=== PATIENT | male | born 1995 | race Caucasian/White ===

== ENCOUNTER 2019-12-08 16:20 | Inpatient (IN) | payer SELFPAY ==
[2019-12-08] MEDS ORDERED: fentaNYL 100 MCG/2 ML SDV IVPUSH ONE (17:06)
[2019-12-08] MEDS ORDERED: Ondansetron 4 MG/2 ML SDV IV ONE (17:06)
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
[2019-12-08] MEDS: Sodium Chloride 0.9% 1,000 ML IV ONE ×2 (17:14→19:04)
[2019-12-08 17:15] LABS: ANION GAP 15.6 mEq/L (7-13); CHLORIDE,CL 104 mmol/L (98-107); SODIUM,NA 143 mmol/L (136-145)
[2019-12-08] MEDS ORDERED: Iopamidol 612 MG/ML 100 ML Bottle IVPUSH ONE (17:32)
--- NOTE | 2019-12-08 18:14 | CT ---
PROCEDURE INFORMATION: Exam: CT Abdomen And Pelvis With Contrast Exam date and time: 12/08/2019 5:45 PM Age: 24 years old Clinical indication: Vomiting and other: Wbc 15,500; Additional info: Rlq pain, n/v, back pain TECHNIQUE: Imaging protocol: Computed tomography of the abdomen and pelvis with intravenous contrast. Radiation optimization: All CT scans at this facility use at least one of these dose optimization techniques: automated exposure control; mA and/or kV adjustment per patient size (includes targeted exams where dose is matched to clinical indication); or iterative reconstruction. Contrast material: [id number]; Contrast volume: 100 ml; Contrast route: INTRAVENOUS (IV); COMPARISON: No relevant prior studies available. FINDINGS: Lungs: The visualized portions of the lung bases are normal. There is no cardiomegaly, Liver: Normal. No mass. Gallbladder and bile ducts: Cholecystectomy. No ductal dilation. Pancreas: Normal. No ductal dilation. Spleen: Normal. No splenomegaly. Adrenals: Normal. No mass. Kidneys and ureters: Bilateral small non-obstructing renal nephroliths that range in size from 2-4mm. Right kidney has a length of 10.2 cm. Left kidney measures 9.9 cm with mild cortical thinning. No hydronephrosis. Stomach and bowel: Unremarkable. No obstruction. No mucosal thickening. Appendix: There is a normal air-filled appendix. Intraperitoneal space: Unremarkable. No free air. No significant fluid collection. Vasculature: Unremarkable. No abdominal aortic aneurysm. Lymph nodes: Unremarkable. No enlarged lymph nodes. Bladder: Unremarkable as visualized. Reproductive: Unremarkable as visualized. Bones/joints: Unremarkable. No acute fracture. Soft tissues: Unremarkable. IMPRESSION: 1. No acute intra-abdominal or pelvic abnormality. 2. Bilateral renal nephroliths. Right kidney asymmetrically larger than the left. Without IV contrast difficult to exclude pyelonephritis. Correlate clinically.
[2019-12-08] MEDS ORDERED: Ketorolac 30 MG/ML SDV IVPUSH ONE (18:17)
[2019-12-08] MEDS ORDERED: Levofloxacin/Dextrose 5%-Water 500 MG in Premix Bag 1 BAG IV ONE (18:47)
[2019-12-08] MEDS ORDERED: HYDROmorphone 1 MG/ML Syringe IVPUSH ONE (18:51)
[2019-12-08] MEDS ORDERED: Metoclopramide 10 MG/2 ML SDV IVPUSH ONE (19:10)
[2019-12-08] MEDS ORDERED: Docusate Sodium 100 MG Cap PO PRN (19:50)
[2019-12-08] MEDS: Pantoprazole 40 MG Vial IVPUSH SCH (20:42)
[2019-12-08] MEDS: Morphine 2 MG/ML SYRINGE IVPUSH PRN ×2 (20:43→23:10)
[2019-12-08] MEDS: Gabapentin 300 MG Cap PO SCH (20:44)
[2019-12-08] MEDS: Ondansetron 4 MG Tab.DIS PO PRN (20:44)
[2019-12-08] MEDS: Sodium Chloride 0.9% 1,000 ML IV SCH (20:51)
[2019-12-08] MEDS ORDERED: methylPREDNISolone 4 MG Tab 21 Tab/Dosepak PO ONE ×2 (21:30→23:00)
[2019-12-08] MEDS: Nicotine 21 MG/24 Hr Patch TRDERM SCH (21:42)
[2019-12-08] MEDS: oxyCODONE 5 MG Tab PO PRN (21:51)
--- NOTE | 2019-12-09 00:46 | HP ---
CHIEF COMPLAINT: Low back pain and abdominal pain. HISTORY OF PRESENT ILLNESS: The patient is a 24-year-old gentleman who was admitted through the emergency room because the patient was complaining of back pain and right lower quadrant pain. The patient mentioned that he had radiofrequency ablation for his chronic low back pain last October 26, 2019, and had some Medrol Dosepak after the ablation therapy which seems to help, but today he started having again some increased back pain and has been using Tylenol and ibuprofen combination and he ran out of his gabapentin, but he got it refilled today and restarted today. He also mentioned that he had some nausea and vomiting and had some blood in his vomitus. Because of the persistence of low back pain and abdominal pain, he came into the emergency room. In the emergency room, the patient was given fentanyl for pain management and had some lab workup done, which showed some leukocytosis, and a CAT scan of the abdomen and pelvis showed no acute intra-abdominal or pelvic abnormality. There are bilateral renal nephroliths and right kidney asymmetrically larger than the left. Without IV contrast, it is difficult to exclude pyelonephritis. Because of this, he was then admitted for further evaluation and management. PAST MEDICAL HISTORY: Remarkable for chronic low back pain, status post radiofrequency ablation. He has also history of renal calculus and history of cholecystectomy and history of ureteral stent. SOCIAL HISTORY: Used to live in [place] and now here in [place]. He chews tobacco. Very occasional alcohol drinker. No illicit drug use. FAMILY HISTORY: Noncontributory. REVIEW OF SYSTEMS: As in HPI. The patient denies any head headache, chest pain, shortness of breath, dysuria, or diarrhea nor any other complaints. HOME MEDICATIONS: Tylenol PM, gabapentin, and Medrol Dosepak. ALLERGIES: Cephalosporin and penicillin. PHYSICAL EXAMINATION: General: Very pleasant gentleman. He is alert and oriented x3 in mild-to- moderate distress from the abdominal and back pain. Vital Signs: Blood pressure is 145/79, pulse of 89, respirations of 18, temperature of 98.1, saturation is 99%. HEENT: Normocephalic. There are pink palpebral conjunctivae. Sclerae anicteric. No JVD. No lymphadenopathy. Heart: Regular rate and rhythm. Normal S1 and S2. No gallops. No rubs. Lungs: Equal bilaterally. No crackles. No wheezing. Abdomen: Hmko-ja-ehwerynrzu obese. Soft. There is mild generalized direct tenderness with mild rebound. Bowel sounds positive. There is also positive CVA tenderness bilaterally on percussion. There is no LS spine tenderness with palpation. Extremities: Negative for any pedal edema. No calf tenderness. LABORATORY WORKUP: CBC: WBC is 15, hemoglobin is 14.3, hematocrit is 41.7, platelets are 268. Urinalysis has 100 mg of protein, 0-5 rbc's, 0-5 wbc's, and few calcium oxalate crystals. Urine drug screen is negative. Comp panel: Albumin is 5.1, anion gap is 15.6. The rest of the panel unremarkable. Blood cultures sent and lactic acid also ordered. ADMITTING DIAGNOSES: 1. Low back pain and abdominal pain, suspected pyelonephritis. 2. History of chronic low back pain. 3. Nephrolithiasis. TREATMENT PLAN: The patient is going to be admitted to Acute Care General Medicine Floor. He will be started on IV antibiotics and he will be started on IV pain medication, and the rest of the management as necessary, and the patient is a full code. [facility] /[id number]
[2019-12-09] MEDS: Sodium Chloride 0.9% 1,000 ML IV SCH ×2 (01:56→17:58)
[2019-12-09 06:53] LABS: ANION GAP 12.1 mEq/L (7-13); CHLORIDE,CL 108 mmol/L (98-107); SODIUM,NA 143 mmol/L (136-145)
[2019-12-09] MEDS: methylPREDNISolone 4 MG Tab 21 Tab/Dosepak PO SCH (07:57)
[2019-12-09] MEDS: oxyCODONE 5 MG Tab PO PRN ×4 (07:58→20:27)
[2019-12-09] MEDS: Ondansetron 4 MG Tab.DIS PO PRN ×2 (07:58→13:04)
[2019-12-09] MEDS: Pantoprazole 40 MG Vial IVPUSH SCH ×2 (08:00→20:17)
[2019-12-09] MEDS ORDERED: methylPREDNISolone 4 MG Tab 21 Tab/Dosepak PO SCH ×3 (09:00→18:00)
[2019-12-09] MEDS: Gabapentin 300 MG Cap PO SCH ×3 (10:03→20:27)
[2019-12-09] MEDS: Enoxaparin 40 MG/0.4 ML Syringe SUBCUT SCH (10:04)
--- NOTE | 2019-12-09 10:35 | PN ---
DATE: 12/09/2019 SUBJECTIVE: The patient this morning is feeling a little bit better and he tolerated his clear liquid diet. He still has some mild abdominal discomfort, but much better as compared to yesterday. So far, has not had any vomiting. LAB WORKUP THIS MORNING: CBC: WBC is 9.2, hemoglobin is 12.4, hematocrit is 37.8, platelets 211. Basic metabolic panel: Chloride is 108, calcium 8.2. The rest of the panel unremarkable. OBJECTIVE: Vital Signs: Blood pressure is 147/89, pulse of 51, respirations 16, temperature of 97.5, saturation 100%. Heart: Regular rate and rhythm. Normal S1 and S2. No gallops. No rubs. Lungs: Equal bilaterally. No crackles. No wheezing. Abdomen: Soft. There is very mild direct tenderness, but no rebound. Bowel sounds positive. Extremities: Negative for any pedal edema. No calf tenderness. PLAN: We will continue with his present management. We will advance his diet to as tolerated. I am still awaiting for the official report of the blood culture as well as the urine culture. [facility] /[id number]
[2019-12-09] MEDS: Morphine 2 MG/ML SYRINGE IVPUSH PRN ×2 (13:04→22:53)
[2019-12-09] MEDS: Acetaminophen 325 MG Tab PO PRN ×2 (15:54→20:29)
[2019-12-09] MEDS ORDERED: Levofloxacin/Dextrose 5%-Water 500 MG in Premix Bag 1 BAG IV SCH (20:00)
[2019-12-09] MEDS: Nicotine 21 MG/24 Hr Patch TRDERM SCH (20:39)
[2019-12-10] MEDS: Acetaminophen 325 MG Tab PO PRN ×2 (01:02→08:40)
[2019-12-10] MEDS: oxyCODONE 5 MG Tab PO PRN ×2 (01:03→08:40)
[2019-12-10] MEDS: Morphine 2 MG/ML SYRINGE IVPUSH PRN (01:04)
[2019-12-10] MEDS: Sodium Chloride 0.9% 1,000 ML IV SCH (04:21)
[2019-12-10] MEDS: methylPREDNISolone 4 MG Tab 21 Tab/Dosepak PO SCH (08:38)
[2019-12-10] MEDS: Gabapentin 300 MG Cap PO SCH (08:39)
[2019-12-10] MEDS: Enoxaparin 40 MG/0.4 ML Syringe SUBCUT SCH (08:39)
[2019-12-10] MEDS: Pantoprazole 40 MG Vial IVPUSH SCH (08:39)
--- NOTE | 2019-12-10 09:18 | DISCH ---
FINAL DIAGNOSES: 1. Low back pain and abdominal pain with suspected pyelonephritis. 2. Nephrolithiasis. 3. Chronic low back pain. 4. Gastritis. BRIEF HISTORY OF PRESENT ILLNESS: Please see H and P. PERTINENT LABS, X-RAY, AND OTHER TESTS ON ADMISSION: Please see H and P. HOSPITAL COURSE: The patient was admitted to Acute Care, General Medicine Floor. He was empirically started on IV antibiotics (Levaquin) and was also given Protonix for his abdominal pain for possible gastritis and he was given morphine for pain management as well as oxycodone. Blood cultures came back negative and the patient slowly improved and he was subsequently discharged. Hospital course was basically uncomplicated and he will be discharged on oral Levaquin for the next 7 days. He will also be given oxycodone for pain management and also be continued on Protonix for the next 10 to 14 days. He is going to follow up with the primary care provider for a recheck. [facility] /[id number]
--- NOTE | 2019-12-10 09:18 | PN ---
DATE: 12/10/2019 SUBJECTIVE: The patient continues to do well. He still has some mild right- sided abdominal/flank pain, but overall he is feeling much better and he is ready to go home. He denies any fever, chills, chest pain, shortness of breath, dysuria, diarrhea, nor any other complaints. Blood culture so far has no growth. OBJECTIVE: Vital Signs: Blood pressure is 145/97, pulse 62, respirations 20, temperature of 98.2, saturation is 100% on room air. Heart: Regular rate and rhythm. Normal S1 and S2. No gallops. No rubs. Lungs: Equal bilaterally. No crackles. No wheezing. Abdomen: Soft. There is mild direct tenderness in the right lumbar area, but no rebound. Bowel sounds positive, and there is mild CVA tenderness in the right costovertebral angle. Extremities: Negative for any pedal edema. No calf tenderness. MEDICATIONS: Reviewed. PLAN: We will discharge the patient home today. We will continue with oral antibiotics for the next 7 days, and we will also give him some oxycodone for pain management, and we will resume his home medication, and he is going to follow up with primary care provider in 7 to 10 days for a recheck of urinalysis. [facility] /[id number]
== END 2019-12-10 11:34 | disposition home or self-care (01) | DRG 690 ==
LOC: DL.ED 16:20 → UNDOADMIN 19:47 → DL.MS 19:47
PROVIDERS: ADMIT Internal Medicine; ATTEND Internal Medicine
DX: N12 Tubulo-interstitial nephritis, not specified as acute or chronic (principal); N20.0 Calculus of kidney; K29.70 Gastritis, unspecified, without bleeding; F17.200 Nicotine dependence, unspecified, uncomplicated; M54.5 Low back pain; G89.29 Other chronic pain; Z88.0 Allergy status to penicillin; Z90.49 Acquired absence of other specified parts of digestive tract; Z79.899 Other long term (current) drug therapy; Z28.82 Immunization not carried out because of caregiver refusal
CPT/HCPCS: 36415; 74177; 80048; 80053; 80305-QW; 81001; 83605; 85025; 87040; 87086; 96361; 96374; 96375; 99285-25; A9270-GY; C9113; J1170; J1650; J1885; J1956; J2270; J2405; J2765; J3010; J7030; Q9967

== ENCOUNTER 2019-12-27 05:38 | Emergency (ER) | payer SELFPAY ==
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
[2019-12-27 06:49] LABS: CHLORIDE,CL 105 mmol/L (98-107); SODIUM,NA 141 mmol/L (136-145)
== END 2019-12-27 08:39 | disposition home or self-care (01) ==
LOC: DL.ED 05:38
DX: M54.16 Radiculopathy, lumbar region (principal); F17.210 Nicotine dependence, cigarettes, uncomplicated; Z88.1 Allergy status to other antibiotic agents; Z88.0 Allergy status to penicillin; Z79.899 Other long term (current) drug therapy
CPT/HCPCS: 36415; 80053; 80305-QW; 81003; 84484; 85025; 93005; 99283-25

== ENCOUNTER 2020-02-19 21:23 | Emergency (ER) | payer SELFPAY ==
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
[2020-02-19] MEDS ORDERED: Acetaminophen 325 MG Tab PO ONE ×2 (22:01→22:08)
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
== END 2020-02-19 22:32 ==
LOC: DL.ED 21:23
DX: S20.211A Contusion of right front wall of thorax, initial encounter (principal); F17.210 Nicotine dependence, cigarettes, uncomplicated; Z88.1 Allergy status to other antibiotic agents; Z88.0 Allergy status to penicillin; Y04.0XXA Assault by unarmed brawl or fight, initial encounter
CPT/HCPCS: 71101-RT; 99284-25; U0002

== ENCOUNTER 2020-02-20 19:45 | Emergency (ER) | payer SELFPAY ==
[2020-02-20 21:17] LABS: ANION GAP 16.6 mEq/L (7-13); CHLORIDE,CL 103 mmol/L (98-107); SODIUM,NA 139 mmol/L (136-145)
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
== END 2020-02-20 21:28 ==
LOC: DL.ED 19:45
DX: G89.29 Other chronic pain (principal); M54.5 Low back pain; S20.211A Contusion of right front wall of thorax, initial encounter; F50.89 Other specified eating disorder; F17.210 Nicotine dependence, cigarettes, uncomplicated; Z88.1 Allergy status to other antibiotic agents; Z88.0 Allergy status to penicillin; Y04.0XXA Assault by unarmed brawl or fight, initial encounter
CPT/HCPCS: 36415; 80053; 80305-QW; 81001; 82150; 83690; 85025; 99284

== ENCOUNTER 2021-07-31 09:12 | Emergency (ER) | payer OTHER ==
[2021-07-31] MEDS ORDERED: Sodium Chloride 0.9% 1,000 ML IV ONE (09:46)
[2021-07-31] MEDS ORDERED: Ondansetron 4 MG/2 ML SDV IV ONE (09:46)
[2021-07-31] MEDS ORDERED: Sodium Chloride 0.9% 10 ML Syringe FLUSH PRN (09:46)
[2021-07-31] MEDS ORDERED: Pantoprazole 40 MG Vial IVPUSH ONE (09:47)
[2021-07-31] MEDS ORDERED: HYDROmorphone 1 MG/ML Syringe IVPUSH ONE ×2 (09:47→10:52)
[2021-07-31] MEDS ORDERED: Promethazine 25 MG/ML SDV IM ONE (10:21)
[2021-07-31 10:35] LABS: ANION GAP 14.9 mEq/L (7-13); CHLORIDE,CL 102 mmol/L (98-107); SODIUM,NA 138 mmol/L (136-145)
[2021-07-31 10:45] LABS: BENZODIAZEPINE,URINE NEGATIVE (NEGATIVE); METHAMPHETAMINES,URINE NEGATIVE (NEGATIVE); OPIATES,URINE NEGATIVE (NEGATIVE)
[2021-07-31 10:46] LABS: AMPHETAMINES,URINE NEGATIVE (NEGATIVE); BARBITURATES,URINE NEGATIVE (NEGATIVE); MDMA (ECSTASY), URINE NEGATIVE (NEGATIVE); METHADONE,URINE POSITIVE (NEGATIVE); OXYCODONE,URINE NEGATIVE (NEGATIVE); PHENCYCLIDINE,URINE NEGATIVE (NEGATIVE); TCA,URINE POSITIVE (NEGATIVE)
[2021-07-31] MEDS ORDERED: Iopamidol 612 MG/ML 100 ML Bottle IVPUSH ONE (10:49)
[2021-07-31 11:26] LABS: CORONAVIRUS COVID-19 NAA NEGATIVE (NEGATIVE); RESPIRATORY SYNCYTIAL VIR NAA NEGATIVE (NEGATIVE)
== END 2021-07-31 13:16 | disposition home or self-care (01) ==
LOC: DL.ED 09:12
DX: A08.4 Viral intestinal infection, unspecified (principal); Z90.49 Acquired absence of other specified parts of digestive tract; Z79.899 Other long term (current) drug therapy; Z88.0 Allergy status to penicillin; Z88.1 Allergy status to other antibiotic agents; Z20.822 Contact with and (suspected) exposure to COVID-19
CPT/HCPCS: 0241U; 36415; 71046; 74177; 80053; 80305-QW; 81003; 82150; 82272; 83605; 83690; 83735; 84484; 85025; 85379; 86140; 87040; 87046; 96372; 96374; 96375; 96376; 99284; 99284-25; C9113; J1170; J2405; J2550; J3490; J7030; Q9967

== ENCOUNTER 2021-11-09 01:17 | Emergency (ER) | payer OTHER ==
[2021-11-09] MEDS ORDERED: Sodium Chloride 0.9% 10 ML Syringe FLUSH PRN (01:45)
[2021-11-09] MEDS ORDERED: Ketorolac 30 MG/ML SDV IVPUSH ONE (01:45)
[2021-11-09] MEDS ORDERED: fentaNYL 100 MCG/2 ML SDV IVPUSH ONE (01:45)
[2021-11-09 02:37] LABS: AMPHETAMINES,URINE NEGATIVE (NEGATIVE); BARBITURATES,URINE NEGATIVE (NEGATIVE); BENZODIAZEPINE,URINE NEGATIVE (NEGATIVE); MDMA (ECSTASY), URINE NEGATIVE (NEGATIVE); METHADONE,URINE POSITIVE (NEGATIVE); METHAMPHETAMINES,URINE NEGATIVE (NEGATIVE); OPIATES,URINE NEGATIVE (NEGATIVE); OXYCODONE,URINE NEGATIVE (NEGATIVE); PHENCYCLIDINE,URINE NEGATIVE (NEGATIVE); TCA,URINE POSITIVE (NEGATIVE)
[2021-11-09 02:41] LABS: ANION GAP 13.9 mEq/L (7-13)
[2021-11-09] MEDS ORDERED: methylPREDNISolone Sodium Succinate 125 MG/2 ML SDV IVPUSH ONE (03:53)
== END 2021-11-09 04:35 | disposition home or self-care (01) ==
LOC: DL.ED 01:17
DX: M54.50 Low back pain, unspecified (principal); Z86.16 Personal history of COVID-19; Z88.0 Allergy status to penicillin; Z88.8 Allergy status to other drugs, medicaments and biological substances
CPT/HCPCS: 36415; 72131; 80053; 80305-QW; 81003; 85025; 85651; 86140; 96374; 96375; 99284; 99285-25; J1885; J2930; J3010; J3490

== ENCOUNTER 2022-08-15 21:16 | Emergency (ER) | payer OTHER ==
[2022-08-15] MEDS: Morphine 4 MG/ML Syringe IM ONE (23:13)
[2022-08-15] MEDS: Ondansetron 4 MG Tab.DIS PO ONE (23:19)
[2022-08-16] MEDS: HYDROmorphone 1 MG/ML Syringe IM ONE (00:10)
[2022-08-16] MEDS ORDERED: Take Home: Acetaminophen/oxyCODONE 325-5 MG, 5 Tab Pack PO ONE (00:50)
[2022-08-16] MEDS: Take Home: Acetaminophen/oxyCODONE 325-5 MG, 5 Tab Pack PO ONE (01:10)
== END 2022-08-16 01:22 | disposition home or self-care (01) ==
LOC: DL.ED 21:16
DX: S42.001A Fracture of unspecified part of right clavicle, initial encounter for closed fracture (principal); Z88.0 Allergy status to penicillin; Z88.8 Allergy status to other drugs, medicaments and biological substances; Z86.16 Personal history of COVID-19; V18.0XXA Pedal cycle driver injured in noncollision transport accident in nontraffic accident, initial encounter
CPT/HCPCS: 73030; 96372; 99283; A9270; J1170; J2270; 99282

== ENCOUNTER 2023-04-21 12:46 | Emergency (ER) | payer OTHER ==
[2023-04-21 13:25] LABS: BASOPHILS PERCENT AUTO 0.1 % (0.0-1.0); EOSINOPHILS PERCENT AUTO 0.7 % (1.0-3.0); HEMATOCRIT 48.7 % (40.0-54.0); LYMPHOCYTES PERCENT AUTO 3.7 % (20.5-50.1); MEAN CORPUSCULAR HEMOGLOBIN 30.4 pg (27.0-34.0); MEAN CORPUSCULAR HGB CONC 34.9 g/dL (33.0-35.0); MONOCYTES PERCENT AUTO 5.4 % (2-8); NEUTROPHILS PERCENT AUTO 90.1 % (42.2-75.2); PLATELET COUNT,PLT 289 10^3/uL (150-450); WHITE BLOOD CELL COUNT,WBC 14.1 10^3/uL (5.0-10.0)
[2023-04-21] MEDS: Sodium Chloride 0.9% 1,000 ML IV ONE ×2 (13:27→14:33)
[2023-04-21] MEDS: Sodium Chloride 0.9% 10 ML Syringe FLUSH PRN (13:27)
[2023-04-21] MEDS: Ondansetron 4 MG/2 ML SDV IV ONE (13:27)
[2023-04-21] MEDS: Albuterol/Ipratropium 3.0-0.5 MG/3 ML Neb Soln NEB ONE (13:28)
[2023-04-21 13:50] LABS: ALANINE AMINOTRANSFERASE,ALT 41 U/L (16-63); ALBUMIN 5.1 g/dL (3.4-5.0); ALKALINE PHOSPHATASE 80 U/L (46-116); ANION GAP 22.6 mEq/L (7-13); ASPARTATE AMNIOTRANSFERASE,AST 27 U/L (15-37); BILIRUBIN TOTAL 1.1 mg/dL (0.2-1.0); BLOOD UREA NITROGEN,BUN 20 mg/dL (7-18); BUN/CREATININE RATIO 18.3 (No establ ref range); CALCIUM 9.7 mg/dL (8.5-10.1); CARBON DIOXIDE,CO2 19 mmol/L (21-32); CHLORIDE,CL 103 mmol/L (98-107); CREATININE 1.09 mg/dL (0.70-1.30); EST CRCL DRUG DOSING (CG) 103.25 mL/min; GLUCOSE RANDOM 128 mg/dL (70-99); POTASSIUM,K 3.6 mmol/L (3.5-5.1); PROTEIN TOTAL,TP 8.3 g/dL (6.4-8.2); SODIUM,NA 141 mmol/L (136-145)
[2023-04-21 13:51] LABS: A/G RATIO 1.59; ESTIMATED GFR 94 mL/min (>=60); LACTIC ACID 1.4 mmol/L (0.4-2.0)
[2023-04-21 14:14] LABS: CORONAVIRUS COVID-19 NAA NEGATIVE (NEGATIVE); INFLUENZA A NAA NEGATIVE (NEGATIVE); INFLUENZA B NAA NEGATIVE (NEGATIVE); RESPIRATORY SYNCYTIAL VIR NAA NEGATIVE (NEGATIVE)
[2023-04-21] MEDS: Morphine 4 MG/ML Syringe IVPUSH ONE (14:33)
[2023-04-21] MEDS: Levofloxacin/Dextrose 5%-Water 500 MG in Premix Bag 1 BAG IV ONE (14:33)
[2023-04-21] MEDS: Vancomycin 125 MG Cap PO ONE (14:34)
== END 2023-04-21 15:54 | disposition home or self-care (01) ==
LOC: DL.ED 12:46
DX: J20.9 Acute bronchitis, unspecified (principal); F50.89 Other specified eating disorder; R19.7 Diarrhea, unspecified; E86.0 Dehydration; F17.210 Nicotine dependence, cigarettes, uncomplicated; Z86.16 Personal history of COVID-19; Z79.899 Other long term (current) drug therapy; Z88.0 Allergy status to penicillin; Z88.1 Allergy status to other antibiotic agents
CPT/HCPCS: 0241U; 36415; 71045; 80053; 83605; 84145; 84484; 85025; 85379; 87040; 87045; 87046; 87493; 87899; 93005; 93010; 94640; 96361; 96365; 96375; 99284; 99285-25; A9270-GY; J1956; J2270; J2405; J3490; J7030; J7620-GY